=== PATIENT | female | born 1990 | race Caucasian/White ===

== ENCOUNTER 2018-03-09 11:47 | Emergency (ER) | payer MEDICAID ==
[~2018-03-09] VITALS: Ht 152.4 cm; Wt 59.0 kg
[2018-03-09 12:10] VITALS: BP 123/87; Ht 152.4 cm; Wt 59.0 kg
== END 2018-03-09 13:32 | disposition home or self-care (01) ==
LOC: ED 11:47
DX: Z76.0 Encounter for issue of repeat prescription (principal)

== ENCOUNTER 2018-03-22 12:14 | Emergency (ER) | payer MEDICAID ==
[~2018-03-22] VITALS: Ht 152.4 cm; Wt 59.9 kg
[2018-03-22 12:53] VITALS: BP 118/81
== END 2018-03-22 12:53 | disposition home or self-care (01) ==
LOC: ED 12:14
DX: G44.209 Tension-type headache, unspecified, not intractable (principal); Z76.0 Encounter for issue of repeat prescription; Z98.51 Tubal ligation status